=== PATIENT | male | born 1990 | race Caucasian/White ===

== ENCOUNTER 2016-05-21 12:16 | Inpatient (IN) | payer MEDICAID ==
[~2016-05-21] VITALS: Ht 165.1 cm; Wt 55.3 kg
[2016-05-21 12:47] LABS: BASOPHILS % (AUTO) 0.4 % (0.0-2.0); EOSINOPHILS % (AUTO) 0.4 % (1.0-6.0); HEMATOCRIT 49.2 % (41-53); HEMOGLOBIN 16.3 g/dL (13.5-17.5); LYMPHOCYTES % (AUTO) 15.7 % (22.0-44.0); MEAN CORPUSCULAR HGB CONC 33.1 G/dL (31.0-37.0); MEAN CORPUSCULAR VOLUME 91 fL (80-100); MONOCYTES # (AUTO) 0.6 K/uL (0.1-1.0); MONOCYTES % (AUTO) 8.5 % (2.0-9.0); NEUTROPHILS # (AUTO) 4.9 K/uL (1.8-7.7); PLATELET COUNT (AUTO) 177 K/uL (150-450); RED BLOOD CELL COUNT(AUTO) 5.42 MIL/uL (4.50-5.90); RED CELL DISTRIBUTION WIDTH 12.1 % (11.5-14.5); WHITE BLOOD COUNT (AUTO) 6.5 K/uL (4.5-11.0)
[2016-05-21 12:51] LABS: ANION GAP 13 mmol/L (8-16); CALCIUM, TOTAL 8.9 mg/dL (8.8-10.5); CARBON DIOXIDE 25 mmol/L (22-29); CHLORIDE 99 mmol/L (98-107); CREATININE 1.95 mg/dL (0.60-1.30); GLOMERULAR FILTR. RATE CALC 42 mL/min (>60); POTASSIUM 3.5 mmol/L (3.5-5.1); SODIUM SERUM 137 mmol/L (136-145); UREA NITROGEN, BLOOD 29 mg/dL (7-18)
[2016-05-21 12:57] LABS: ALANINE AMINOTRANSFERASE 26 U/L (12-78); ALBUMIN 4.6 g/dL (3.4-5.0); ASPARTATE AMINOTRANSFERASE 38 U/L (15-37); BILIRUBIN,TOTAL 1.9 mg/dL (0.1-1.0)
[2016-05-21 17:13] LABS: ACETAMINOPHEN 33 mcg/mL (10-30)
[2016-05-21] MEDS ORDERED: LORazepam 2 MG TABLET PO PRN (17:15)
[2016-05-21] MEDS ORDERED: HALOPERIDOL 5 MG TABLET PO PRN (17:15)
[2016-05-21] MEDS ORDERED: ZOLPIDEM TARTRATE 10 MG TABLET PO PRN (17:15)
[2016-05-21 17:38] LABS: SALICYLATE < 2.8 mg/dL (2.8-20.0)
[2016-05-21] MEDS ORDERED: SODIUM CHLORIDE 0.9% 1,000 ML IV ONE (17:45)
[2016-05-21] MEDS ORDERED: WATER IV ONE ×2 (19:00→20:00)
[2016-05-21] MEDS ORDERED: ACETYLCYSTEINE IV ONE ×2 (19:00→20:00)
[2016-05-21] MEDS ORDERED: DEXTROSE 5% IV ONE ×2 (19:00→20:00)
[2016-05-21] MEDS ORDERED: 0.9% SODIUM CHLORIDE 10 ML SYRINGE IVP PRN (19:30)
[2016-05-21] MEDS ORDERED: ACETAMINOPHEN 325 MG TABLET PO PRN (19:30)
[2016-05-21 22:01] VITALS: BP 145/75
[2016-05-22 00:02] VITALS: BP 138/96
[2016-05-22] MEDS ORDERED: INFLUENZA VIRUS VACCINE QVS 2016-17 (3YR+)/PF 60 MCG/0.5 ML SYRINGE IM ONE (00:15)
[2016-05-22 04:51] VITALS: BP 129/81
[2016-05-22 06:26] LABS: BASOPHILS % (AUTO) 0.5 % (0.0-2.0); EOSINOPHILS % (AUTO) 1.7 % (1.0-6.0); HEMATOCRIT 45.1 % (41-53); HEMOGLOBIN 15.1 g/dL (13.5-17.5); LYMPHOCYTES # (AUTO) 0.9 K/uL (1.0-4.8); MEAN CORPUSCULAR HEMOGLOBIN 30.5 pg (26.0-34.0); MEAN CORPUSCULAR HGB CONC 33.6 G/dL (31.0-37.0); MEAN CORPUSCULAR VOLUME 91 fL (80-100); MONOCYTES # (AUTO) 0.3 K/uL (0.1-1.0); MONOCYTES % (AUTO) 4.8 % (2.0-9.0); NEUTROPHILS # (AUTO) 4.9 K/uL (1.8-7.7); PLATELET COUNT (AUTO) 140 K/uL (150-450); RED BLOOD CELL COUNT(AUTO) 4.97 MIL/uL (4.50-5.90); RED CELL DISTRIBUTION WIDTH 12.2 % (11.5-14.5); WHITE BLOOD COUNT (AUTO) 6.3 K/uL (4.5-11.0)
[2016-05-22 07:08] LABS: ALANINE AMINOTRANSFERASE 72 U/L (12-78); ALBUMIN 3.5 g/dL (3.4-5.0); ANION GAP 10 mmol/L (8-16); ASPARTATE AMINOTRANSFERASE 95 U/L (15-37); BILIRUBIN,TOTAL 2.6 mg/dL (0.1-1.0); CALCIUM, TOTAL 8.3 mg/dL (8.8-10.5); CARBON DIOXIDE 25 mmol/L (22-29); CHLORIDE 104 mmol/L (98-107); CREATININE 1.35 mg/dL (0.60-1.30); GLOMERULAR FILTR. RATE CALC > 60 mL/min (>60); POTASSIUM 3.1 mmol/L (3.5-5.1); SODIUM SERUM 139 mmol/L (136-145); TOTAL PROTEIN, SERUM 6.6 g/dL (6.4-8.2); UREA NITROGEN, BLOOD 22 mg/dL (7-18)
[2016-05-22 08:10] VITALS: BP 139/86
[2016-05-22 10:13] LABS: ACETAMINOPHEN 1 mcg/mL (10-30)
[2016-05-22] MEDS ORDERED: POTASSIUM CHLORIDE 20 MEQ ER TABLET PO ONE (11:15)
[2016-05-22 12:29] VITALS: BP 145/85
[2016-05-22 15:20] VITALS: BP 112/71
[2016-05-22] MEDS ORDERED: DEXTROSE 5% IV ONE ×3 (16:00)
[2016-05-22] MEDS ORDERED: WATER IV ONE ×3 (16:00)
[2016-05-22] MEDS ORDERED: ACETYLCYSTEINE IV ONE ×3 (16:00)
[2016-05-22 19:56] VITALS: BP 140/88
[2016-05-23] VITALS: BP 142/80
[2016-05-23 05:30] VITALS: BP 136/90
[2016-05-23 06:53] LABS: BASOPHILS # (AUTO) 0.02 K/uL (0.00-0.20); BASOPHILS % (AUTO) 0.6 % (0.0-2.0); EOSINOPHILS # (AUTO) 0.09 K/uL (0.00-0.70); EOSINOPHILS % (AUTO) 2.34 % (1.0-6.0); HEMATOCRIT 42.9 % (41-53); HEMOGLOBIN 14.6 g/dL (13.5-17.5); LYMPHOCYTES # (AUTO) 0.9 K/uL (1.0-4.8); LYMPHOCYTES % (AUTO) 22.8 % (22.0-44.0); MEAN CORPUSCULAR HEMOGLOBIN 30.4 pg (26.0-34.0); MEAN CORPUSCULAR HGB CONC 34.1 G/dL (31.0-37.0); MEAN CORPUSCULAR VOLUME 89 fL (80-100); MONOCYTES # (AUTO) 0.4 K/uL (0.1-1.0); NEUTROPHILS # (AUTO) 2.7 K/uL (1.8-7.7); NEUTROPHILS % (AUTO) 65.3 % (40.0-70.0); PLATELET COUNT (AUTO) 114 K/uL (150-450); RED BLOOD CELL COUNT(AUTO) 4.82 MIL/uL (4.50-5.90); RED CELL DISTRIBUTION WIDTH 12.8 % (11.5-14.5); WHITE BLOOD COUNT (AUTO) 4.1 K/uL (4.5-11.0)
[2016-05-23 07:25] VITALS: BP 122/87
[2016-05-23 07:25] LABS: ALANINE AMINOTRANSFERASE 313 U/L (12-78); ALBUMIN 3.2 g/dL (3.4-5.0); ANION GAP 8 mmol/L (8-16); ASPARTATE AMINOTRANSFERASE 364 U/L (15-37); BILIRUBIN,TOTAL 1.5 mg/dL (0.1-1.0); CALCIUM, TOTAL 8.2 mg/dL (8.8-10.5); CARBON DIOXIDE 27 mmol/L (22-29); CHLORIDE 104 mmol/L (98-107); CREATININE 0.94 mg/dL (0.60-1.30); GLOMERULAR FILTR. RATE CALC > 60 mL/min (>60); POTASSIUM 3.4 mmol/L (3.5-5.1); SODIUM SERUM 139 mmol/L (136-145); UREA NITROGEN, BLOOD 10 mg/dL (7-18)
[2016-05-23] MEDS ORDERED: WATER IV ONE (09:15)
[2016-05-23] MEDS ORDERED: ACETYLCYSTEINE IV ONE (09:15)
[2016-05-23] MEDS ORDERED: DEXTROSE 5% IV ONE (09:15)
[2016-05-23 12:06] VITALS: BP 126/84
[2016-05-23 19:59] VITALS: BP 111/69
[2016-05-23 23:30] VITALS: BP 116/77
[2016-05-24 04:25] VITALS: BP 110/63
[2016-05-24 07:14] LABS: INR 1.1 (0.9-1.1); PROTHROMBIN TIME 11.7 SEC (9.4-11.6)
[2016-05-24 07:30] VITALS: BP 118/70
[2016-05-24 09:27] LABS: ANION GAP 8 mmol/L (8-16); CALCIUM, TOTAL 8.4 mg/dL (8.8-10.5); CARBON DIOXIDE 30 mmol/L (22-29); CHLORIDE 104 mmol/L (98-107); CREATININE 0.84 mg/dL (0.60-1.30); GLOMERULAR FILTR. RATE CALC > 60 mL/min (>60); POTASSIUM 3.5 mmol/L (3.5-5.1); SODIUM SERUM 142 mmol/L (136-145); UREA NITROGEN, BLOOD 4 mg/dL (7-18)
[2016-05-24 10:40] LABS: ALANINE AMINOTRANSFERASE 586 U/L (12-78); ALBUMIN 3.2 g/dL (3.4-5.0); ASPARTATE AMINOTRANSFERASE 577 U/L (15-37); BILIRUBIN,TOTAL 1.2 mg/dL (0.1-1.0); TOTAL PROTEIN, SERUM 5.9 g/dL (6.4-8.2)
[2016-05-24 11:14] VITALS: BP 122/81
[2016-05-24 15:58] VITALS: BP 116/56
[2016-05-24 19:21] VITALS: BP 132/79
[2016-05-26 04:06] LABS: HEPATITIS Bs ANTIGEN SCREEN P Negative (Negative); HEPATITIS C AB SCREEN <0.1 s/co ratio (0.0-0.9)
== END 2016-05-24 19:20 | disposition home or self-care (01) | DRG 812 ==
LOC: EMS 12:18 → EEVIPCON 12:18 → B2S 17:22 → 6N 17:22
PROVIDERS: ADMIT Hospitalist; ATTEND Hospitalist
PROC: 3E0234Z Introduction of Serum, Toxoid and Vaccine into Muscle, Percutaneous Approach (ICD-10-PCS; principal; 2016-05-22)
DX: T39.1X2A Poisoning by 4-Aminophenol derivatives, intentional self-harm, initial encounter (principal); N17.9 Acute kidney failure, unspecified; R45.851 Suicidal ideations; F19.90 Other psychoactive substance use, unspecified, uncomplicated; F12.90 Cannabis use, unspecified, uncomplicated; F17.210 Nicotine dependence, cigarettes, uncomplicated; F15.10 Other stimulant abuse, uncomplicated; E87.6 Hypokalemia; F32.9 Major depressive disorder, single episode, unspecified; Z91.5 Personal history of self-harm; Z71.6 Tobacco abuse counseling; Z23 Encounter for immunization; Y92.89 Other specified places as the place of occurrence of the external cause; Y93.89 Activity, other specified; Y99.8 Other external cause status
CPT/HCPCS: 80074; 90471; 96360; 96365; 96367; 99291; G0480; G0481; J0132; J7030; J7060